=== PATIENT | female | born 1995 | race Two or more races ===

== ENCOUNTER 2024-08-22 09:16 | Outpatient (AMB) | payer MEDICAID, SELFPAY ==
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
[2024-08-22 09:21] VITALS: BP 113/55; PULSE 88; RESP 15; O2SAT 99; BMI 23.9
== END 2024-08-22 10:07 | disposition home or self-care (01) ==
PROVIDERS: PCP Family Medicine; Visit Provider Internal Medicine
DX: M47.816 Spondylosis without myelopathy or radiculopathy, lumbar region (principal); M54.50 Low back pain, unspecified; G89.29 Other chronic pain
CPT/HCPCS: 99204

== ENCOUNTER → 2024-08-22 09:16 | Outpatient (BNVA) | payer MEDICAID, SELFPAY | PROVIDERS: PCP Family Medicine; Visit Provider Internal Medicine | DX: M53.3 Sacrococcygeal disorders, not elsewhere classified (principal); M47.816 Spondylosis without myelopathy or radiculopathy, lumbar region; G89.29 Other chronic pain; Z91.81 History of falling; Z79.891 Long term (current) use of opiate analgesic | CPT/HCPCS: 99202 ==

== ENCOUNTER 2024-09-06 06:23 | Outpatient (REF) | payer MEDICAID, SELFPAY | END 2024-09-06 06:24 | disposition home or self-care (01) | LOC: CF 06:23 | PROVIDERS: Visit Provider Internal Medicine | DX: M47.816 Spondylosis without myelopathy or radiculopathy, lumbar region (principal); M54.50 Low back pain, unspecified; G89.29 Other chronic pain; M62.85 Dysfunction of the multifidus muscles, lumbar region | CPT/HCPCS: 64555; C1778; J2003 ==

== ENCOUNTER 2024-09-06 11:35 | Outpatient (AMB) | payer MEDICAID, SELFPAY ==
--- NOTE | 2024-09-06 11:42 | MHC.OFFVIS ---
Vital Signs 09/06/24 11:43 09/06/24 13:10 BP 94/50 L 97/54 L Blood Pressure Location Rt brachial Rt brachial Position Sitting Sitting Pulse 91 69 Pulse Source Pulse Oximeter Pulse Oximeter Pulse Oximetry (%) 100 100 Oxygen Delivery Method Room Air Room Air Intake Visit Reasons: Left L4 Sprint/ Ativan Allergies latex Adverse Reaction (Intermediate, Verified 08/22/24 09:23) Rash HPI HPI Left L4 Sprint/ Ativan: Details: Patient presents for scheduled procedure. Denies any recent cough, cold, infection, fever or other significant changes in medical history since last office visit. Physical Exam Vital Signs: Last Vital Signs Pulse 69 09/06/24 13:10 BP 97/54 L 09/06/24 13:10 Pulse Ox 100 09/06/24 13:10 Oxygen Delivery Method Room Air 09/06/24 13:10 Office Procedures Details: Lumbar Medial Branch Nerve Stimulation Lead Placement, SPR (Sprint) System, Left L4 medial branch ? After the risks, benefits and alternatives were discussed with the patient and informed consent was obtained, patient was placed in the prone position and padded to foster comfort. The skin overlying the lumbosacral spine was prepped and draped in sterile fashion. Fluoroscopy was used to identify the spinous process and lamina in the center of the patient?s region of pain. After identifying and marking the intended target along the course of the medial branch nerve, the skin around the planned entry point and the subcutaneous tissues were injected with lidocaine 1%. An introducer needle and stimulating probe were assembled, inserted and advanced along the intended course of the medial branch nerve as it traverses the lamina medial and inferior to the zygapophyseal joint, taking care to maintain the proper depth of insertion as the introducer is advanced under fluoroscopic guidance. The introducer needle was delivered to a location in proximity to the nerve. Multiple stimulation parameters were used to deliver stimulation to the target medial branch nerve in concert with stimulating at multiple positions around the nerve. Nerve target acquisition was confirmed noting generation of paresthesias in the paravertebral regions corresponding to the level being stimulated. Various electrical parameter combinations were tested, and the lead location was adjusted (physically relocated) until the patient indicated paresthesia/muscle tension overlapping the distribution of the patient?s typical region of pain. The stimulating probe was removed from the introducer and a percutaneous lead was guided through the needle and delivered to a location in similar proximity to the nerve. Final location was verified with electrical stimulation and documented with fluoroscopy. The introducer needle was removed, and the exposed end of the percutaneous lead was attached to an external stimulator unit. Various electrical parameter combinations were again tested until the patient indicated paresthesia or muscle tension overlapping the distribution of the patient?s typical region of pain. After confirming that lead impedance was in the normal range, the external unit was detached, the needle was removed, and the lead was anchored at the skin. The lead was threaded into the connector block and electrical continuity and desired patient response was confirmed. The connector block was attached to the external stimulator unit. The site was covered with a sterile occlusive dressing. The patient was observed for stability of vital signs and comfort. Sprint PNS Device: Sprint PNS Device [id number] Percutaneous Peripheral Neuroelectrode Procedure: 60910 - Percutaneous Peripheral Neuroelectrode Procedure code (CPT) selection complete Office Meds lidocaine HCl 10 mg/mL (1 %) injection solution Performing Provider: Kiana Dennis APRN, CNP Performing Location: [facility] Administered by: Flower Martinez LPN on 09/06/24 13:04 Dose Route Admin Location Dispensed Lot Number Expiration Date ND Application Operations Engineer 5 mL subcut 5 mL Assessment & Plan Assessment & Plan (1) Chronic low back pain: Code(s): M54.50 - Low back pain, unspecified; G89.29 - Other chronic pain Category: Medical (2) Lumbar spondylosis: Code(s): M47.816 - Spondylosis without myelopathy or radiculopathy, lumbar region Category: Medical (3) Dysfunction of the multifidus muscle of lumbar region: Code(s): M62.85 - Dysfunction of the multifidus muscles, lumbar region Category: Medical Plan Patient is status post temporary left L4 medial branch nerve stimulator placement. Patient tolerated procedure well and was discharged home in stable condition with discharge instructions. All questions were answered. We will follow-up via telephone or in clinic to assess response to therapy. A follow-up appointment was made during today's visit. Orders: Orders AMB Sprint PNS Today M47.816 - Spondylosis without myelopathy or radiculopathy, lumbar region FL guidance in treatment room Today M47.816 - Spondylosis without myelopathy or radiculopathy, lumbar region Medications: New lorazepam (Ativan) Take 30 minutes prior to arrival to procedure 1 mg PO ONCE 1 tab 0RF anxiety Coding Level of Care Code Procedure Only Diagnoses Chronic low back pain M54.50; G89.29 Lumbar spondylosis M47.816 Dysfunction of the multifidus muscle of lumbar region M62.85 CPT Codes Sprint PNS - Sprint PNS Device: Sprint PNS Device ([id number]) Sprint PNS - SPRINT: 48446 - Percutaneous Peripheral Neuroelectrode ([id number]) Implantable Device Implantable Device Implantable Devices Qty Application Operations Engineer Implant Date Expiration Date Analgesic PENS system 1 [employer] 09/06/24 07/04/25
[2024-09-06 11:43] VITALS: BP 94/50; PULSE 91; O2SAT 100
[2024-09-06 13:10] VITALS: BP 97/54; PULSE 69; O2SAT 100
== END 2024-09-06 13:05 | disposition home or self-care (01) ==
LOC: HO.PMCPRC 11:35
PROVIDERS: PCP Family Medicine; Visit Provider Internal Medicine
DX: M54.50 Low back pain, unspecified (principal); G89.29 Other chronic pain; M47.816 Spondylosis without myelopathy or radiculopathy, lumbar region; M62.85 Dysfunction of the multifidus muscles, lumbar region
CPT/HCPCS: 64555

== ENCOUNTER → 2024-09-10 10:11 | Outpatient (BNVA) | payer MEDICAID, SELFPAY | PROVIDERS: PCP Family Medicine; Visit Provider Anesthesiology ==

== ENCOUNTER 2024-09-12 09:16 | Outpatient (AMB) | payer MEDICAID, SELFPAY ==
--- NOTE | 2024-09-12 09:36 | MHC.OFFVIS ---
Vital Signs 09/12/24 09:37 Height 5 ft 3 in Weight 135 lb BMI 23.9 BP 100/50 L Blood Pressure Location Lt brachial Position Sitting Respiration 15 Pulse 88 Pulse Source Pulse Oximeter Pulse Oximetry (%) 98 Oxygen Delivery Method Room Air Intake Visit Reasons: s/p left L4 Sprint Allergies latex Adverse Reaction (Intermediate, Verified 09/12/24 09:38) Rash Medication List - Last Reconciled 09/12/24 by Flower Martinez LPN buprenorphine HCl (Belbuca) 75 mcg buccal BID lamotrigine mg PO lidocaine 5% 1 patch topical DAILY lorazepam (Ativan) 1 mg PO ONCE quetiapine 100 mg PO BEDTIME HPI HPI s/p left L4 Sprint: Details: 29-year-old female who presents today to the office for a status post left L4 sprint. The patient reports mild relief following the procedure. She still continues to experience pain in her lower back that radiates down to her leg. She reports constant pins and needle sensations from the device while walking. The device setting is at 70. She has tried to decrease the device setting but still continue to experience sensations. She has been feeling appropriate paresthesia sensation from the device. She inquired about starting physical therapy and trying chiropractic manipulations for her pain. She will start a physical therapy for her upper back and neck region. Past procedures 09/06/24: Lumbar Medial Branch Nerve Stimulation Lead Placement, SPR (Sprint) System, Left L4 medial branch: Mild initial relief. Review of Systems Const All systems reviewed & are unremarkable except as noted in HPI and below Physical Exam Vital Signs: Last Vital Signs Pulse 88 09/12/24 09:37 Resp 15 09/12/24 09:37 BP 100/50 L 09/12/24 09:37 Pulse Ox 98 09/12/24 09:37 Oxygen Delivery Method Room Air 09/12/24 09:37 BMI result Body Mass Index 23.9 General: Appears afebrile. Alert and oriented. Mood and affect appropriate. Follows and participates in conversation appropriately. Respiratory effort is unlabored. Able to transition from sit to stand unassisted. Ambulates with bilaterally normal heel strike and toe off. Lead insertion site was clean, dry, and intact. Results Reviewed Results Reviewed: No imaging is available for review. Assessment & Plan Assessment & Plan (1) Dysfunction of the multifidus muscle of lumbar region: Code(s): M62.85 - Dysfunction of the multifidus muscles, lumbar region Category: Medical (2) Chronic low back pain: Code(s): M54.50 - Low back pain, unspecified; G89.29 - Other chronic pain Category: Medical (3) Lumbar spondylosis: Code(s): M47.816 - Spondylosis without myelopathy or radiculopathy, lumbar region Category: Medical Plan The patient will follow up in seven weeks for removal of the sprint device. I recommended avoiding strenuous activities, such as twisting, bending, or lifting. I informed the patient that it is recommended that the device be used for at least 12 hours every day. She can turn off the device at night while sleeping. Scribed for Dr. Bell by Kevon Wick, medical assistant cardiology, on 09/12/2024. I, Dr. Bell, have personally reviewed and agree with the information entered by the scribe. Coding Level of Care Code Est Pt Level 3 (37352) Diagnoses Dysfunction of the multifidus muscle of lumbar region M62.85 Chronic low back pain M54.50; G89.29 Lumbar spondylosis M47.816
[2024-09-12 09:37] VITALS: BP 100/50; PULSE 88; RESP 15; O2SAT 98; BMI 23.9
== END 2024-09-12 09:52 | disposition home or self-care (01) ==
LOC: HO.PMC 09:16
PROVIDERS: PCP Family Medicine; Visit Provider Internal Medicine
DX: M62.85 Dysfunction of the multifidus muscles, lumbar region (principal); M54.50 Low back pain, unspecified; G89.29 Other chronic pain; M47.816 Spondylosis without myelopathy or radiculopathy, lumbar region
CPT/HCPCS: 99024

== ENCOUNTER → 2024-09-12 09:16 | Outpatient (BNVA) | payer MEDICAID, SELFPAY | PROVIDERS: PCP Family Medicine; Visit Provider Internal Medicine | DX: M62.85 Dysfunction of the multifidus muscles, lumbar region (principal); M54.50 Low back pain, unspecified; M47.816 Spondylosis without myelopathy or radiculopathy, lumbar region; G89.29 Other chronic pain | CPT/HCPCS: 99212 ==

== ENCOUNTER 2024-10-31 09:22 | Outpatient (AMB) | payer MEDICAID, SELFPAY ==
--- OUTSIDE RECORDS SUMMARY | 2024-10-31 09:28 | XMS_ITS | Continuity of Care Document ---
[facility] Address [address] [place] [address] [place] [address] Phone Care Team Providers Care Restaurant Host/Hostess Name Role Phone Teressa Reyes OD Unavailable Unavailable Allergies, Adverse Reactions, Alerts Substance Reaction Status Criticality latex Active No Information Medications Medication Instructions Dosage Effective Dates (start - stop) Status Comments naproxen 125 mg/5 mL oral suspension - Active TRAMADOL HCL ER (unknown strength) Not Available - Active Procedures Procedure Date Determ Refractive State Ophth Serv: Med Exam; Comp Est 19 Contact Lens Check No Charge Contact Lens Check No Charge Contact Lens Check No Charge Script & Fit Contact; Standard Lens New Determ Refractive State Ophth Serv: Med Exam; Comp New 17 Advance Directives Directive Yes / No Effective Date File Name No Information Encounters Encounter Description Practice Location Reason(s) For Visit Diagnoses Date Provider Providers Copied on Encounter [facility] , [address] [place] [address], [place], [id number], [place] tel:[phone] [facility] Comprehensive vision exam (chief complaint) Myopia, bilateral Eric Gannon. [address] [place] [address] [address], [place], [id number], [place]. tel:[phone] [facility] , [address] [place], [place] [address], [id number], [place] tel:[phone] [facility] contact lens check (chief complaint) Myopia, bilateral Eric Gannon. [address] [place] [address] [address], [place]este [place], [id number], [place]. tel:[phone] [facility] , [address] [place] [address], [place], [address], [place] tel:[phone] Celeste de guzman/[facility] Contact lens check (chief complaint) Myopia, bilateral Eric Gannon. [address] [place] [address] [address], [place]este [place]zman [place], [id number], [place]. tel:[phone] [facility] , [address] [place] [address], [place], [id number], [place] tel:[phone] Celeste de guzman[facility] Contact lens check (chief complaint) Myopia, bilateral Eric Gannon. [address] [place] [address] [address], [place]este [place] guzman [place], [id number], [place]. tel:[phone] [facility] , [address] [place] [address], [place], [address], [place] tel:[phone] [facility] Comprehensive vision exam (chief complaint) Myopia, bilateral Eric Gannon. [address] [place] [address] [address], [place]este [place], [id number], [place]. tel:[phone] Family History Family Member Type Diagnosis Age At Onset No Information Payers Payer name Insurance type Covered alliance party ID Isaías alicia(s) Superior Laya WRIGHT Phys Care Medicaid [id number] Social History Type Description Quantity Date Captured Comments Alcohol Use Details Caffeine Use Details coffee and tea Tobacco Use Status Never smoked tobacco 2018 Smoking Status Never smoker Non-Smoking Tobacco Use Details : No Details Available : No Details Available Sex Female Chief Complaint And Reason For Visit From encounter dated '12/30/2018 09:07'. Comprehensive vision exam (chief complaint). Description: The 23 year old female presents for a comprehensive vision exam of both eyes. Her last eye exam was about a year ago. The patient states thatshe is seeing well with her glasses and contacts for the most part, however, night time driving hasbecome difficult. She also reports that she has noticed that she wears her glasses more often than she used to and needs them when watching TV. The patient is not interested in updating her contact lens prescription today, due to having a large supply of lenses; she states that she typically wears her glasses more often. Reason For Referral Reason For Referral No Information Plan Of Treatment Date Type Action Status Patient Education Nearsightedness (Myopia ): Care Instruc completed Patient Education Nearsightedness (Myopia ): Care Instruc completed History Of Present Illness Encounter Date Complaint History Of Prese nt Illness Comprehensive vision exam The 23 year old female presents for a comprehensive vision exam of both eyes. Her last eye exam was about a year ago. The patient states that she is seeing well with her glasses and contacts for the most part, however, night time driving has become difficult. She also reports that she has noticed that she wears her glasses more often than she used to and needs them when watching TV. The patient is not interested in updating her contact lens prescription today, due to having a large supply of lenses; she states that she typically wears her glasses more often. contact lens check The 22 year o ld female presents for a contact lens check in the right eye and left eye. Patient received her contacts on August 17, 2017. She has no issues with contacts She sees well with them. Contact lens check The 22 year o ld female presents for a contact lens check in both eyes. Patient is not wearing contact lenses today, she states that they burn as soon as she inserts the lenses. Contact lens check The 22 year o ld female presents for a contact lens check in both eyes. The patient states that she is seeing well with the contacts. However, she reports that her eyes feel very dry, irritated, and red every time she puts the contacts in- beginning after 2 hours. She reports to using eye drops, but states they do not help. Comprehensive vision exam The 22 year old female presents for a comprehensive vision exam of both eyes. Her last eye exam was about two years ago. The patient states that she is seeing well with her glasses, denies ocular or visual complaints. She is interested in getting contacts today. Functional Status Date Functional Assessmen t No Information Instructions Date Instruction Additional Infor sonny Return in 1 year yasmani Reyes O.D. for Full w/refraction. Related to Myopia, bilateral Return in 1 year yasmani Reyes O.D. for Full w/refraction.Return for I & R teach and CTL check with LG. Related to Myopia, bilateral Assessments Type Assessment Date assessment Myopia, bilateral impression Myopia, bilateral: H52.13 Bilate ral Patient Care Teams Name Effective Dates (start - stop) Status Members No Information
--- NOTE | 2024-10-31 09:38 | MHC.OFFVIS ---
Vital Signs 10/31/24 09:39 Height 5 ft 3 in Weight 136 lb BMI 24.1 BP 113/56 L Blood Pressure Location Lt brachial Position Sitting Respiration 15 Pulse 90 Pulse Source Pulse Oximeter Pulse Oximetry (%) 96 Oxygen Delivery Method Room Air Intake Visit Reasons: Sprint removal Allergies latex Adverse Reaction (Intermediate, Verified 10/31/24 09:41) Rash Medication List - Last Reconciled 10/31/24 by Flower Martinez LPN buprenorphine HCl (Belbuca) 75 mcg buccal BID lamotrigine mg PO lidocaine 5% 1 patch topical DAILY lorazepam (Ativan) 1 mg PO ONCE quetiapine 100 mg PO BEDTIME HPI HPI Sprint removal: Details: 29-year-old female who presents to the office today for sprint removal. Overall she reports about 50% relief in her left-sided low back pain. However she continues to have significant right-sided low back pain which is especially worse with activities. She is still unable to go shopping or outside her house for most activities. She is mostly homebound and feels debilitated. Past procedures 09/06/24: Lumbar Medial Branch Nerve Stimulation Lead Placement, SPR (Sprint) System, Left L4 medial branch: 50% relief on the left side. Review of Systems Const All systems reviewed & are unremarkable except as noted in HPI and below Physical Exam Vital Signs: Last Vital Signs Pulse 90 10/31/24 09:39 Resp 15 10/31/24 09:39 BP 113/56 L 10/31/24 09:39 Pulse Ox 96 10/31/24 09:39 Oxygen Delivery Method Room Air 10/31/24 09:39 BMI result Body Mass Index 24.1 General: Appears afebrile. Alert and oriented. Mood and affect appropriate. Follows and participates in conversation appropriately. Respiratory effort is unlabored. Able to transition from sit to stand unassisted. Ambulates with bilaterally normal heel strike and toe off. Results Reviewed Results Reviewed: Intervertebral disc degeneration with Modic changes at the inferior endplate of L5 along with fissuring and Modic changes at the superior endplate of S1. Assessment & Plan Assessment & Plan (1) Dysfunction of the multifidus muscle of lumbar region: Code(s): M62.85 - Dysfunction of the multifidus muscles, lumbar region Category: Medical (2) Lumbar spondylosis: Code(s): M47.816 - Spondylosis without myelopathy or radiculopathy, lumbar region Category: Medical (3) Chronic low back pain: Code(s): M54.50 - Low back pain, unspecified; G89.29 - Other chronic pain Category: Medical (4) Vertebrogenic low back pain: Code(s): M54.51 - Vertebrogenic low back pain Category: Medical Plan Patient presented for PNS lead removal today. Lead site is intact, no redness, no pathological discharge, no signs of infection noted. Lead was removed with tip intact. Once again I reviewed her lumbar spine MRI showing degeneration of the L5-S1 disc with fissuring of the S1 superior endplate and extrusion of disc contents into the vertebral body which is likely a source of inflammation and pain in her lower back. She also has Modic changes in the inferior endplate of the L5 vertebral body. Together these appear to be causing vertebrogenic low back pain that has not been responsive to multiple modalities including acupuncture, physical therapy, chiropractic manipulation, oral opioid therapy, hot water therapy, sacroiliac joint injections and temporary nerve stimulation of the medial branches. Given her young age as well as the nature of the problem, she is not a candidate for lumbar spine surgery. I think she would benefit from ablation of the basivertebral nerve at the L5 and S1 levels to help provide symptomatic relief from her ongoing condition and this should help with continuing her rehabilitation as well. At this time she is mostly limited to her home and is unable to go about her daily tasks and activities which is further contributing to musculoskeletal dysfunction. I discussed BVN ablation at L5 and S1 as a possible treatment option for her. She is interested in proceeding. I provided her with a brochure with details regarding the procedure. We will request insurance authorization. Recommended exercising, stretching, and swimming for relief. Scribed for Dr. Bell by [employer] or surgical instrument maker, on 10/31/2024. I, Dr. Bell, have personally reviewed and agree with the information entered by the scribe. Coding Level of Care Code Est Pt Level 4 (85512) Diagnoses Dysfunction of the multifidus muscle of lumbar region M62.85 Lumbar spondylosis M47.816 Chronic low back pain M54.50; G89.29 Vertebrogenic low back pain M54.51
[2024-10-31 09:39] VITALS: BP 113/56; PULSE 90; RESP 15; O2SAT 96; BMI 24.1
== END 2024-10-31 10:18 | disposition home or self-care (01) ==
PROVIDERS: PCP Family Medicine; Visit Provider Internal Medicine
DX: M62.85 Dysfunction of the multifidus muscles, lumbar region (principal); M47.816 Spondylosis without myelopathy or radiculopathy, lumbar region; M54.50 Low back pain, unspecified; G89.29 Other chronic pain; M54.51 Vertebrogenic low back pain
CPT/HCPCS: 99214

== ENCOUNTER → 2024-10-31 09:22 | Outpatient (BNVA) | payer MEDICAID, SELFPAY | PROVIDERS: PCP Family Medicine; Visit Provider Internal Medicine | DX: M62.85 Dysfunction of the multifidus muscles, lumbar region (principal); M47.816 Spondylosis without myelopathy or radiculopathy, lumbar region; M54.50 Low back pain, unspecified; M54.51 Vertebrogenic low back pain; G89.29 Other chronic pain | CPT/HCPCS: 99212 ==

== ENCOUNTER 2024-11-28 11:04 | Outpatient (AMB) | payer MEDICAID, SELFPAY ==
--- NOTE | 2024-11-28 11:05 | A.OFFVIS_ITS ---
Intake Visit Reasons: Discuss Alternate Procedure Options Allergies latex Adverse Reaction (Intermediate, Verified 10/31/24 09:41) Rash HPI HPI Discuss Alternate Procedure Options: Details: 29-year-old female presenting to discuss next steps since her Intracept procedure was denied by the insurance. She requests further documentation to keep her out of work beyond November. She also requests a referral for physical therapy for her upper and lower back pains. Telehealth Telehealth Telehealth Platform: [employer] Location of provider rendering services: practice address Location of patient: address on file Patient Identification confirmed using: Name, : Yes Telehealth method: video Patient verbally consented to treatment: Yes Patient informed of any privacy concerns related to visit: Yes Minutes spent on Phone/Video with Pt.: 28 Assessment & Plan Assessment & Plan (1) Vertebrogenic low back pain: Code(s): M54.51 - Vertebrogenic low back pain Category: Medical (2) Dysfunction of the multifidus muscle of lumbar region: Code(s): M62.85 - Dysfunction of the multifidus muscles, lumbar region Category: Medical (3) Chronic low back pain: Code(s): M54.50 - Low back pain, unspecified; G89.29 - Other chronic pain Category: Medical (4) Lumbar spondylosis: Code(s): M47.816 - Spondylosis without myelopathy or radiculopathy, lumbar region Category: Medical Plan For her upper and lower back pain, recommended continuing physical therapy, aquatherapy, CBT, acupuncture and home exercise program as tolerated. If she has a change in her insurance coverage, she will let us know and we can we resubmit prior authorization request for Intracept procedure. For her request regarding documentation to stay out of work beyond November, I explained to her that I can provide her with documentation to remain out of work for postprocedure recovery following procedures that are done through our office. Since no further procedures are possible our planned at this point, I am unable to provide her with long-term disability documentation. I encouraged her to undergo a functional capacity evaluation and provide this to her finance attorney to be able to appropriately justify her needs for disability assistance. For the interim while she is undergoing physical therapy for upper and lower back pain, I agreed to provide her with documentation to remain out of work until 01/26/2025, with the explanation that we will not be able to provide any further documentation to this effect. Coding Level of Care Code Est Pt Level 5 (71989) Diagnoses Vertebrogenic low back pain M54.51 Dysfunction of the multifidus muscle of lumbar region M62.85 Chronic low back pain M54.50; G89.29 Lumbar spondylosis M47.816 Time Spent (min) 40 Comment More than 40 minutes spent in conversation and documentation of this visit
== END 2024-11-28 11:05 | disposition home or self-care (01) ==
LOC: HO.PMC 11:04
PROVIDERS: PCP Family Medicine; Visit Provider Internal Medicine
DX: M54.51 Vertebrogenic low back pain (principal); M62.85 Dysfunction of the multifidus muscles, lumbar region; M54.50 Low back pain, unspecified; G89.29 Other chronic pain; M47.816 Spondylosis without myelopathy or radiculopathy, lumbar region
CPT/HCPCS: 98007